=== PATIENT | male | born 1955 | race Two or more races ===

== ENCOUNTER 2022-09-20 12:52 | Emergency (ER) | payer OTHER ==
[~2022-09-20] VITALS: Ht 177.8 cm; Wt 74.8 kg
[2022-09-20] MEDS ORDERED: ACETAMINOPHEN 325MG TABLET PO ONE (14:15)
[2022-09-20] MEDS ORDERED: KETOROLAC 60MG/2ML VIAL IM ONE (14:15)
[2022-09-20 16:12] LABS: BASOPHILS % 0.6 % (0.0-2.0); EOSINOPHILS % 0.4 % (0.0-5.0); HEMATOCRIT. 45.1 % (42.0-52.0); HEMOGLOBIN. 14.9 g/dL (14.0-18.0); LYMPHOCYTES % 19.5 % (20.0-50.0); MEAN CORPUSCULAR HEMOGLOBIN 33.6 pg (28.0-32.0); MEAN CORPUSCULAR VOLUME 101.7 fL (80.0-94.0); MEAN PLATELET VOLUME 9.8 fl (7.4-10.4); MONOCYTES % 11.7 % (2.0-8.0); NEUTROPHILS % 67.8 % (40.0-76.0); PLATELET 113 x1000/uL (130-400); RED BLOOD CELL COUNT 4.43 mill/uL (4.7-6.1); RED CELL DISTRIBUTION WIDTH 14.9 % (11.6-14.6)
[2022-09-20 16:18] LABS: CHLORIDE 109 mEq/L (98-107)
[2022-09-20 16:45] LABS: INR 1.1; PROTHROMBIN TIME 11.6 sec (9.6-11.0)
[2022-09-20 21:33] VITALS: BP 158/98
== END 2022-09-20 22:30 | disposition admitted as inpatient to this hospital (09) ==
LOC: ER 12:52 → CANBEDREQ 17:09 → ER 22:30
DX: S72.001A Fracture of unspecified part of neck of right femur, initial encounter for closed fracture (principal); W18.39XA Other fall on same level, initial encounter; Y93.89 Activity, other specified; Y92.89 Other specified places as the place of occurrence of the external cause; Y99.8 Other external cause status; Z20.822 Contact with and (suspected) exposure to COVID-19
CPT/HCPCS: 36415; 72192; 73502; 80053; 85025; 85610; 86850; 86900; 86901; 87426; 93005; 96372; 99285; C9803; J1885